=== PATIENT | female | born 1965 | race African-American/Black ===

== ENCOUNTER 2018-03-14 14:34 | Emergency (ER) | payer MEDICAID, OTHER ==
[~2018-03-14] VITALS: Ht 167.6 cm; Wt 80.0 kg
[2018-03-14 14:37] VITALS: BP 149/78
== END 2018-03-14 18:00 | disposition left against medical advice (07) ==
LOC: ER 14:34
DX: Z53.21 Procedure and treatment not carried out due to patient leaving prior to being seen by health care provider (principal)